=== PATIENT | male | born 1945 | race Caucasian/White ===

== ENCOUNTER 2016-08-15 16:11 | Emergency (ER) | payer MEDICARE, OTHER ==
[~2016-08-15] VITALS: Ht 185.4 cm; Wt 109.0 kg
[2016-08-15] MEDS ORDERED: LIDOCAINE 4% TOPICAL 4.5 ML SYR ONE (16:25)
[2016-08-15] MEDS ORDERED: OXYMETAZOLINE 0.05% NASAL SPRAY (AFRIN) 15 ML BTL ONE (16:25)
[2016-08-15] MEDS ORDERED: SILVER NITRATE APPLICATOR 1 EA TOP ONE (16:25)
[2016-08-15 16:49] LABS: BASOPHILS % (AUTO) 1 % (0-2); EOSINOPHILS # (AUTO) 0.2 10^3uL; EOSINOPHILS % (AUTO) 2 % (0-4); LYMPHOCYTES # (AUTO) 1.7 X10^3; MEAN CORPUSCULAR HGB CONC 34.6 g/dL (31.0-37.0); MEAN CORPUSCULAR VOLUME 94 FL (80-100); MEAN PLATELET VOLUME 10.1 FL (6.0-9.5); MONOCYTES % (AUTO) 10 % (3-11); NEUTROPHILS # (AUTO) 6.8 X10^3; NEUTROPHILS % (AUTO) 70 % (51-67); PLATELET COUNT 199 10^3uL (150-450); WHITE BLOOD COUNT 9.77 10^3uL (4.0-11.0)
[2016-08-15 16:57] LABS: ALBUMIN 4.1 g/dL (3.4-5.0); ANION GAP 12.9 MEQ/L (3-15); CALCULATED IONIZED CALCIUM 4.2 mg/dL (3.8-4.6); TOTAL PROTEIN 7.1 g/dL (6.4-8.5)
[2016-08-15 16:58] LABS: MEAN CORPUSCULAR HEMOGLOBIN 32.5 PG (26.0-34.0)
[2016-08-15 17:38] VITALS: BP 165/89
== END 2016-08-15 17:34 | disposition home or self-care (01) ==
LOC: ED 16:20
DX: R04.0 Epistaxis (principal); D68.32 Hemorrhagic disorder due to extrinsic circulating anticoagulants; T45.515A Adverse effect of anticoagulants, initial encounter; F17.210 Nicotine dependence, cigarettes, uncomplicated
CPT/HCPCS: 30901; 36415; 80053; 85025; 85610; 99283; A9270

== ENCOUNTER → 2016-08-16 | Emergency (ER) | payer MEDICARE, OTHER ==
[~2016-08-16] VITALS: Ht 185.4 cm; Wt 105.0 kg
[~2016-08-16] MED LIST: BACITRACIN OINTMENT 0.9 GM PACKET TOP ONE
[2016-08-16 14:57] VITALS: BP 122/78
--- NOTE | 2016-08-16 15:06 | NUR ---
Nasal rocket removed from pt nose via Dr. Nguyen. Bacitracin oint. applied to nostrils via Dr. Nguyen.
== END | disposition home or self-care (01) ==
LOC: ED 14:49
DX: D68.32 Hemorrhagic disorder due to extrinsic circulating anticoagulants (principal); R04.0 Epistaxis; T45.515D Adverse effect of anticoagulants, subsequent encounter; F17.210 Nicotine dependence, cigarettes, uncomplicated
CPT/HCPCS: 99281; 99282